=== PATIENT | male | born 1980 | race Asian ===

== ENCOUNTER 2018-08-23 08:35 | Outpatient (CLI) | payer OTHER ==
[2018-08-23 08:53] LABS: PLATELET COUNT 255 K/uL (142-355)
[2018-08-23 09:33] LABS: POTASSIUM 4.1 mmol/L (3.6-5.2)
== END 2018-08-23 22:21 | disposition home or self-care (01) ==
LOC: LABW 08:35
PROVIDERS: Physician Assistant
DX: M54.2 Cervicalgia (principal); R63.5 Abnormal weight gain; R25.3 Fasciculation
CPT/HCPCS: 36415; 80053; 80061; 83036; 83874; 84439; 84443; 85027; 86039

== ENCOUNTER 2019-01-23 10:05 | Emergency (ER) | payer OTHER ==
[~2019-01-23] VITALS: Ht 177.8 cm; Wt 127.5 kg
[2019-01-23 10:08] VITALS: BP 142/97; TEMP 97.7
== END 2019-01-23 11:06 | disposition home or self-care (01) ==
LOC: ED 10:05
DX: J20.9 Acute bronchitis, unspecified (principal); J98.01 Acute bronchospasm
CPT/HCPCS: 87502; 87651; 94664; 99283

== ENCOUNTER 2020-04-06 22:03 | Emergency (ER) | payer OTHER ==
[~2020-04-06] VITALS: Ht 177.8 cm; Wt 117.9 kg
[2020-04-06 23:38] VITALS: BP 134/80; TEMP 99.9
== END 2020-04-06 23:38 | disposition home or self-care (01) ==
LOC: ED 22:03
DX: J40 Bronchitis, not specified as acute or chronic (principal); U07.1 COVID-19
CPT/HCPCS: 87502; 87635; 87651; 99283; G2023; U00003

== ENCOUNTER 2020-04-10 14:52 | Observation (INO) | payer OTHER ==
[~2020-04-10] VITALS: Ht 177.8 cm; Wt 125.8 kg
[2020-04-10 14:52] VITALS: BP 121/82; TEMP 99.2
[2020-04-10 15:58] LABS: PLATELET COUNT 214 K/uL (142-355)
[2020-04-10 16:00] LABS: POTASSIUM 3.8 mmol/L (3.6-5.2); SODIUM 135 mmol/L (136-145)
[2020-04-10 19:15] VITALS: BP 118/79; TEMP 99
[2020-04-10 20:10] VITALS: BP 120/84; TEMP 99
[2020-04-10 23:58] VITALS: BP 134/77; TEMP 98.9
[2020-04-11 00:54] VITALS: BP 139/77; TEMP 98.9; Ht 177.8 cm; Wt 125.8 kg
[2020-04-11 03:46] VITALS: BP 138/81; TEMP 98.6
[2020-04-11 08:00] VITALS: BP 138/80; TEMP 98.2
--- NOTE | 2020-04-11 09:28 | NUR ---
SPOKE WITH PT'S YASMIN WHO HAD NO PIN NUMBER. ADVISED HER THAT SHE WOULD NEED TO SPEAK WITH PT TO SET UP PIN BEFORE I COULD GIVEN OUT ANY INFORMATION. 0937- RECEIVED CALL BACK FROM PT'S WHO WAS UPSET AND DEMANDING TO KNOW WHY HER HAD NOT BEEN CHANGED OUT OF HIS WET CLOTHES DURING THE EVENING SHIFT AND WHY HE HAD NOT BEEN GIVEN A SLEEPING PILL WHEN HE ASKED FOR IT. I ADVISED HER THAT I WAS UNFAMILIAR WITH WHAT WHEN ON PRIOR TO COMING ONTO SHIFT AND WAS NOT RELAYED THAT INFORMATION DURING REPORT. ATTEMPTED TO RELAY TO SPOUSE THAT HOSP WAS DOING OUR VERY BEST TO TAKE THE VERY BEST CARE OF HER POSSIBLE AND THAT UNFORTUNATELY WE SOMETIMES WERE BUSY IN OTHER PATIENT'S ROOMS THUS CAUSING HER TO EXPERIENCE LONGER THAN USUAL WAIT TIMES FOR ASSIST WITH ADLS AND NEEDS. DIRECTOR INDUSTRIAL NURSING ADVISED THAT [employer] WOULD BE HELPING PATIENT WHEN SHE BECAME AVAILABLE FROM HER LAST PT. MRS. PATINO REQUESTED TO SPEAK TO CHARGE NURSE- I ADVISED THAT THE CN ALSO HAD A CRITICAL CASE LOAD BUT THAT SHE WOULD BE ABLE TO CALL HER BACK SOON SHE COULD. MRS. PATINO VERBALIZED ACCEPTANCE OF THIS AND WAS PLEASANT AT THE END OF THE CALL. ALPESH RAINEY OF SITUATION AND GAVE HER SPOUSES CONTACT INFO.
[2020-04-11 12:00] VITALS: BP 119/74; TEMP 98.5
[2020-04-11 15:00] VITALS: BP 113/72; TEMP 98.3
--- NOTE | 2020-04-11 15:15 | NUR ---
DR. JOHNSON AT BEDSIDE. PT REQUESTED ICE PER DR. JOHNSON.
--- NOTE | 2020-04-11 15:20 | NUR ---
ENTERED ROOM TO GIVE PT ICE- NOTED ICE CUP 1/2 FULL OF ICE WATER. REPLENISHED ICE REQUESTED. NOTICED CONDENSATION WAS LEAKING INTO ROOM FROM VENT AND ONTO FLOOR. WATER CLEANED FROM FLOOR WITH TOWEL AND PT ADVISED TO WATCH HIS STEP WHEN AMBULATING IN THE ROOM. YOANA IN MAINTANANCE NOTIFIED OF WATER LEAKING.
--- NOTE | 2020-04-11 15:39 | NUR ---
RETURNED PHONE CALL TO PT'S MOTHER TESSA PATINO AT [phone]. RELATIVE ANSWERED PHONE BUT DIDN'T HAVE PIN NUMBER. WHEN SHE WENT TO RETRIEVE PIN, SHE INADVERTENTLY HUNG THE PHONE UP.
--- NOTE | 2020-04-11 16:30 | NUR ---
PER Davin SMITH CNA- MOVE PT TO RM 1114 D/T MAINTENANCE ISSUES. PT MUST BE MOVED IN FULL PPE AND BE ADVISED TO KEEP DOOR CLOSED SINCE NEW ROOM IS NOT A NEG PRESSURE RM. ADVISED PT OF THIS- PT ACCEPTING OF ROOM CHANGE AND VERBALIZES UNDERSTANDING OF MOVE. BELONGINGS MOVED TO NEW ROOM WITH PT.
--- NOTE | 2020-04-11 16:40 | NUR ---
PT NOTED TO BE WEARING O2 IN ROOM, SATS 94%. AFTER WALKING WITHOUT O2, SATS DROP TO 88%.
[2020-04-11 19:54] VITALS: BP 145/76; TEMP 98.6
[2020-04-12] VITALS: BP 114/67; TEMP 98.5
[2020-04-12 04:00] VITALS: BP 124/60; TEMP 97.8
[2020-04-12 05:15] LABS: PLATELET COUNT 244 K/uL (142-355)
[2020-04-12 05:26] LABS: POTASSIUM 4.5 mmol/L (3.6-5.2)
[2020-04-12 08:21] VITALS: BP 127/71; TEMP 97.5
[2020-04-12 12:00] VITALS: BP 120/70; TEMP 98
[2020-04-12 16:00] VITALS: BP 124/68; TEMP 98.4
[2020-04-12] MEDS ORDERED: AZIT250T3 PO (16:52)
[2020-04-12] MEDS ORDERED: IPRAAER INH (16:52)
[2020-04-12] MEDS ORDERED: MEDROL DOSEPAK4 MG PO (16:55)
--- NOTE | 2020-04-12 17:45 | NUR ---
PATIENT GIVEN DISCHARGE INSTRUCTIONS AND EXPLANATIONS OF SYMPTOMS TO REPORT. PATIENT V/O UNDERSTANDING AND DENIES ANY FURTHER QUESTIONS. DISCHARGE INSTRUCTIONS SIGNED BY PATIENT. NAD NOTED WITH PATIENT AT THIS TIME.
== END 2020-04-12 18:55 | disposition home or self-care (01) ==
LOC: ED 14:52 → MED/SURG 18:48 → ED 18:48 → MED/SURG 04-11 16:30
PROVIDERS: Internal Medicine; ADMIT Emergency Medicine
DX: U07.1 COVID-19 (principal)
CPT/HCPCS: 36415; 80048; 80053; 82550; 82553; 84484; 85027; 85379; 93005; 94760; 96365; 96366; 96367; 96372; 96375; 99220; 99283; G0378; J0456; J0696; J1100; J1650; Q9963

== ENCOUNTER 2020-05-14 16:14 | Outpatient (CLI) | payer OTHER ==
[~2020-05-14 16:14] MED LIST: AZIT250T3 PO; IPRAAER INH; MEDROL DOSEPAK4 MG PO
== END 2020-05-14 21:01 | disposition home or self-care (01) ==
LOC: LABW 16:14
DX: Z86.19 Personal history of other infectious and parasitic diseases (principal)
CPT/HCPCS: 36415; 86769

== ENCOUNTER 2021-08-15 10:27 | Outpatient (CLI) | payer OTHER | END 2021-08-15 20:50 | disposition home or self-care (01) | LOC: LABW 10:27 | PROVIDERS: ATTEND Internal Medicine | DX: K21.9 Gastro-esophageal reflux disease without esophagitis (principal) | CPT/HCPCS: 36415; 86677 ==